=== PATIENT | female | born 1945 | race Caucasian/White ===

== ENCOUNTER 2016-11-12 05:46 | Emergency (ER) | payer MEDICARE, OTHER ==
[2016-11-12] MEDS ORDERED: PANT40TA3 PO (06:00)
[2016-11-12] MEDS ORDERED: ACET650S21 PO (06:00)
[2016-11-12] MEDS ORDERED: HYDROcodone/APAP 5/325 TABLET PO ONE (06:00)
[2016-11-12] MEDS ORDERED: THYROXINE PO (06:00)
[2016-11-12] MEDS ORDERED: METF10002 PO (06:00)
[2016-11-12] MEDS ORDERED: LISI5TAB7 PO (06:00)
[2016-11-12] MEDS ORDERED: HYDROcodone/APAP 5/325 TABLET ONE (06:22)
[2016-11-12 07:18] VITALS: BP 93/61
== END 2016-11-12 09:24 | disposition home or self-care (01) ==
LOC: ED 06:35
DX: G89.29 Other chronic pain (principal); M17.0 Bilateral primary osteoarthritis of knee; E11.9 Type 2 diabetes mellitus without complications

== ENCOUNTER 2016-11-13 22:18 | Inpatient (IN) | payer MEDICARE, OTHER ==
[~2016-11-13] VITALS: Ht 175.3 cm; Wt 153.6 kg
[~2016-11-13 22:18] MED LIST: ACET650S21 PO; LISI5TAB7 PO; METF10002 PO; PANT40TA3 PO; THYROXINE PO
[2016-11-13] MEDS ORDERED: SODIUM CHLORIDE 0.9% 1,000 ML IV ONE (22:35)
[2016-11-13] MEDS ORDERED: SODIUM CHLORIDE 0.9% 1,000ML IVBOLUS ONE (23:00)
[2016-11-13] MEDS ORDERED: SODIUM CHLORIDE FLUSH 10ML SYR IVF ONE (23:00)
[2016-11-13 23:15] LABS: ASPARTATE AMINO TRANSFERASE 52 U/L (15-37); BLOOD UREA NITROGEN 74 mg/dL (7-18)
[2016-11-13 23:39] LABS: DIFF TOTAL CELLS COUNTED 100 CELL DIFF
[2016-11-13 23:46] LABS: LARGE PLATELETS 1+; VERIFY COUNTS? YES
[2016-11-14] MEDS ORDERED: CEFTRIAXONE 1,000 MG in SODIUM CHLORIDE 0.9% 50 ML IVPB ONE
[2016-11-14] MEDS ORDERED: SODIUM CHLORIDE 0.9% 1,000 ML IV ONE (00:15)
[2016-11-14] MEDS ORDERED: SODIUM CHLORIDE FLUSH 10ML SYR IVF PRN (00:30)
[2016-11-14] MEDS ORDERED: MAALOX/HYOSCYAMINE/LIDOCAINE 45 ML BOTTLE ONE (00:40)
[2016-11-14] MEDS ORDERED: MAALOX/HYOSCYAMINE/LIDOCAINE 45 ML BOTTLE PO ONE (01:00)
[2016-11-14 02:31] VITALS: BP 101/87
[2016-11-14 02:49] VITALS: BP 101/87
[2016-11-14] MEDS ORDERED: POLYETHYLENE GLYCOL 17 GM PACKET PO PRN (04:00)
[2016-11-14] MEDS ORDERED: TRAZODONE 50MG TABLET PO PRN (04:00)
[2016-11-14] MEDS ORDERED: DOCUSATE 100 MG CAPSULE PO PRN (04:00)
[2016-11-14] MEDS ORDERED: PROCHLORPERAZINE 5 MG TABLET PO PRN (04:00)
[2016-11-14] MEDS ORDERED: LABETALOL 5MG/ML, 20ML IVPush PRN (04:00)
[2016-11-14] MEDS ORDERED: ACETAMINOPHEN 325 MG TABLET PO PRN (04:00)
[2016-11-14] MEDS ORDERED: BISACODYL 10 MG SUPP PR PRN (04:00)
[2016-11-14] MEDS: SODIUM CHLORIDE 0.9% 1,000 ML IV SCH ×2 (04:14→09:18)
[2016-11-14] MEDS: CEFTRIAXONE 2 GM in SODIUM CHLORIDE 0.9% 50 ML IV SCH (04:14)
[2016-11-14] MEDS: LEVOTHYROXINE 175 MCG TABLET PO SCH (05:47)
[2016-11-14] MEDS: NICOTINE 14MG/24 HR PATCH.TD24 TD SCH (05:50)
[2016-11-14] MEDS: HEPARIN 5,000 UNITS/ML, 1ML SQ SCH ×3 (05:52→22:00)
[2016-11-14 05:58] LABS: ASPARTATE AMINO TRANSFERASE 45 U/L (15-37); BLOOD UREA NITROGEN 78 mg/dL (7-18)
[2016-11-14 06:02] LABS: DIFF TOTAL CELLS COUNTED 100 CELL DIFF
[2016-11-14 06:05] LABS: VERIFY COUNTS? YES
[2016-11-14] MEDS: INSULIN ASPART 100 UNITS/ML, PEN SQ-INSULIN SCH ×4 (07:00→20:10)
[2016-11-14 07:51] VITALS: BP 78/54
[2016-11-14] MEDS ORDERED: LISINOPRIL 5 MG TABLET PO SCH (09:00)
[2016-11-14] MEDS: PANTOPROZOLE 40MG TABLET PO SCH (09:17)
[2016-11-14] MEDS ORDERED: SODIUM CHLORIDE 0.9% 1,000 ML IV SCH ×2 (11:30→13:00)
[2016-11-14 13:42] VITALS: BP 80/51
[2016-11-14 20:09] VITALS: BP 89/57
[2016-11-15 01:53] VITALS: BP 99/60
[2016-11-15] MEDS: CEFTRIAXONE 2 GM in SODIUM CHLORIDE 0.9% 50 ML IV SCH (03:58)
[2016-11-15 05:25] LABS: BLOOD UREA NITROGEN 89 mg/dL (7-18)
[2016-11-15] MEDS: LEVOTHYROXINE 175 MCG TABLET PO SCH (05:29)
[2016-11-15] MEDS: HEPARIN 5,000 UNITS/ML, 1ML SQ SCH ×3 (05:29→22:14)
[2016-11-15] MEDS: NICOTINE 14MG/24 HR PATCH.TD24 TD SCH (05:29)
[2016-11-15 05:49] LABS: DIFF TOTAL CELLS COUNTED 100 CELL DIFF
[2016-11-15 05:52] LABS: VERIFY COUNTS? YES
[2016-11-15 06:38] VITALS: BP 92/48
[2016-11-15] MEDS: INSULIN ASPART 100 UNITS/ML, PEN SQ-INSULIN SCH ×4 (07:00→20:15)
[2016-11-15] MEDS: PANTOPROZOLE 40MG TABLET PO SCH (09:55)
[2016-11-15] MEDS: SODIUM CHLORIDE 0.9% 1,000 ML IV SCH ×2 (11:16→17:37)
[2016-11-15 12:37] VITALS: BP 148/66
[2016-11-15] MEDS: MUPIROCIN OINT 2%, 22GM TP SCH ×3 (15:08→20:29)
[2016-11-15 19:18] VITALS: BP 108/66
[2016-11-16 01:08] VITALS: BP 101/62
[2016-11-16] MEDS: CEFTRIAXONE PMX 2GM/50ML 50 ML IVPB SCH (04:08)
[2016-11-16] MEDS: LEVOTHYROXINE 175 MCG TABLET PO SCH (05:17)
[2016-11-16] MEDS: HEPARIN 5,000 UNITS/ML, 1ML SQ SCH ×2 (05:18→17:02)
[2016-11-16] MEDS: NICOTINE 14MG/24 HR PATCH.TD24 TD SCH (05:18)
[2016-11-16 05:57] LABS: DIFF TOTAL CELLS COUNTED 100 CELL DIFF
[2016-11-16 05:58] LABS: BLOOD UREA NITROGEN 81 mg/dL (7-18)
[2016-11-16 06:00] LABS: VERIFY COUNTS? YES
[2016-11-16 06:03] LABS: ASPARTATE AMINO TRANSFERASE 26 U/L (15-37)
[2016-11-16 06:42] VITALS: BP 114/70
[2016-11-16] MEDS: INSULIN ASPART 100 UNITS/ML, PEN SQ-INSULIN SCH ×4 (09:11→20:49)
[2016-11-16] MEDS: MUPIROCIN OINT 2%, 22GM TP SCH ×2 (09:36→17:02)
[2016-11-16] MEDS: PANTOPROZOLE 40MG TABLET PO SCH (09:36)
[2016-11-16] MEDS: SODIUM CHLORIDE 0.9% 1,000 ML IV SCH ×2 (09:38→20:48)
[2016-11-16 12:05] VITALS: BP 134/74
[2016-11-16 19:16] VITALS: BP 118/69
[2016-11-17 01:22] VITALS: BP 114/72
[2016-11-17] MEDS: MUPIROCIN OINT 2%, 22GM TP SCH ×4 (01:27→21:00)
[2016-11-17] MEDS: HEPARIN 5,000 UNITS/ML, 1ML SQ SCH ×2 (01:27→08:37)
[2016-11-17] MEDS: CEFTRIAXONE PMX 2GM/50ML 50 ML IVPB SCH (04:17)
[2016-11-17 05:47] LABS: BLOOD UREA NITROGEN 50 mg/dL (7-18)
[2016-11-17 05:55] LABS: DIFF TOTAL CELLS COUNTED 100 CELL DIFF
[2016-11-17 05:59] LABS: VERIFY COUNTS? YES
[2016-11-17 06:01] LABS: POLYCHROMASIA 1+
[2016-11-17 06:05] LABS: LARGE PLATELETS 1+
[2016-11-17] MEDS: LEVOTHYROXINE 175 MCG TABLET PO SCH (06:16)
[2016-11-17] MEDS: NICOTINE 14MG/24 HR PATCH.TD24 TD SCH (06:16)
[2016-11-17 06:41] VITALS: BP 124/77
[2016-11-17] MEDS: INSULIN ASPART 100 UNITS/ML, PEN SQ-INSULIN SCH ×4 (07:00→22:52)
[2016-11-17] MEDS: PANTOPROZOLE 40MG TABLET PO SCH (08:37)
[2016-11-17] MEDS: SODIUM CHLORIDE 0.9% 1,000 ML IV SCH (09:56)
[2016-11-17] MEDS ORDERED: PROPOFOL 10 MG/ML, 20ML ONE (10:31)
[2016-11-17] MEDS ORDERED: ROCURONIUM 10 MG/ML ONE (10:31)
[2016-11-17] MEDS ORDERED: SUCCINYLCHOLINE 20 MG/ML, 10ML ONE (10:31)
[2016-11-17] MEDS ORDERED: OMNIPAQUE 350 MG/ML, 150 ML BOTTLE ONE (10:35)
[2016-11-17] MEDS ORDERED: PHARMACOKINETIC CONSULTATION MC ONE (12:00)
[2016-11-17] MEDS ORDERED: VANCOMYCIN PER PHARMACY MC PRN (12:00)
[2016-11-17] MEDS ORDERED: VANCOMYCIN 2,000 MG in SODIUM CHLORIDE 0.9% 500 ML IV SCH (12:00)
[2016-11-17] MEDS ORDERED: MIDAZOLAM 1 MG/ML, 2ML ONE (12:28)
[2016-11-17] MEDS ORDERED: FENTANYL PF 250 MCG/5ML ONE (12:28)
[2016-11-17] MEDS ORDERED: MIDAZOLAM 1 MG/ML, 5ML ONE (13:59)
[2016-11-17] MEDS ORDERED: ONDANSETRON 2MG/ML, 2ML IV PRN (14:30)
[2016-11-17] MEDS ORDERED: ENTER SLIDING SCALE INSULIN IF ORDERED XX PRN (14:30)
[2016-11-17] MEDS ORDERED: LORazepam 2 MG/ML, 1ML IV PRN (14:30)
[2016-11-17] MEDS ORDERED: LORazepam 1MG TABLET PO PRN (14:30)
[2016-11-17] MEDS ORDERED: FENTANYL PF 2,500 MCG in SODIUM CHLORIDE 0.9% 200 ML IV PRN (15:44)
[2016-11-17] MEDS ORDERED: DEXTROSE 50%, 50ML SYRINGE IVPush PRN (16:00)
[2016-11-17] MEDS ORDERED: PHARMACY MAY ADJ FOR RENAL FX MC SCH (16:00)
[2016-11-17] MEDS ORDERED: LIDOCAINE-MPF 1%, 2ML ENDO PRN (16:00)
[2016-11-17] MEDS ORDERED: LACTULOSE 20 GM/30 ML UDC NG PRN (16:00)
[2016-11-17] MEDS ORDERED: GLUCAGON 1 MG IM PRN (16:00)
[2016-11-17] MEDS ORDERED: MIDAZOLAM 1 MG/ML, 2ML IVPush PRN (16:00)
[2016-11-17 16:02] LABS: ABG COLLECTION SITE RIGHT RADIAL; COLLATERAL CIRCULATION TESTING NORMAL
[2016-11-17] MEDS: HYDROmorphone 1 MG/ML, 1ML IV PRN (16:17)
[2016-11-17] MEDS: PROPOFOL 100 ML IV PRN (16:19)
[2016-11-17] MEDS ORDERED: SODIUM CHLORIDE 0.9% 1,000ML IVBOLUS ONE ×2 (17:30→18:30)
[2016-11-17] MEDS ORDERED: VASOPRESSIN 100 UNIT in SODIUM CHLORIDE 0.9% 495 ML IV PRN (18:00)
[2016-11-17 18:31] LABS: ABG COLLECTION SITE RIGHT RADIAL; COLLATERAL CIRCULATION TESTING NORMAL
[2016-11-17] MEDS: NOREPINEPHRINE 4 MG in SODIUM CHLORIDE 0.9% 246 ML IV PRN ×2 (19:44→22:45)
[2016-11-17] MEDS: MEROPENEM 1 GM in SODIUM CHLORIDE 0.9% 100 ML IV SCH (20:08)
[2016-11-17] MEDS ORDERED: ENOXAPARIN 40 MG/0.4 ML ONE (20:57)
[2016-11-17] MEDS: morphine SULFATE 10 MG/ML, 1ML IV PRN (22:46)
[2016-11-17] MEDS ORDERED: FILTER 0.22 MICRON IV PRN (23:45)
[2016-11-18] MEDS ORDERED: SODIUM CHLORIDE 0.9% 1,000ML IVBOLUS ONE
[2016-11-18] MEDS ORDERED: AMIODARONE 900 MG in DEXTROSE 5% 482 ML IV PRN
[2016-11-18] MEDS ORDERED: PHENYLEPHRINE 20 MG in SODIUM CHLORIDE 0.9% 248 ML IV PRN
[2016-11-18] MEDS ORDERED: AMIODARONE 150 MG in DEXTROSE 5% 100 ML IV ONE
[2016-11-18] MEDS: PROPOFOL 100 ML IV PRN ×4 (00:11→19:16)
[2016-11-18] MEDS: NOREPINEPHRINE 8 MG in SODIUM CHLORIDE 0.9% 242 ML IV PRN ×3 (01:47→16:28)
[2016-11-18] MEDS: MEROPENEM 1 GM in SODIUM CHLORIDE 0.9% 100 ML IV SCH ×3 (03:41→19:49)
[2016-11-18] MEDS: INSULIN ASPART 100 UNITS/ML, PEN SQ-INSULIN SCH ×4 (04:19→20:44)
[2016-11-18 04:28] LABS: ASPARTATE AMINO TRANSFERASE 24 U/L (15-37); BLOOD UREA NITROGEN 47 mg/dL (7-18)
[2016-11-18 04:43] LABS: DIFF TOTAL CELLS COUNTED 100 CELL DIFF
[2016-11-18 04:49] LABS: ANISOCYTOSIS 1+
[2016-11-18 04:50] LABS: POLYCHROMASIA 1+
[2016-11-18 04:51] LABS: LARGE PLATELETS 1+
[2016-11-18 05:21] LABS: ABG COLLECTION SITE LEFT BRACHIAL
[2016-11-18] MEDS: LEVOTHYROXINE 175 MCG TABLET PO SCH (05:30)
[2016-11-18] MEDS: POTASSIUM CHLORIDE 20 MEQ in SODIUM CHLORIDE 0.9% 1,000 ML IV SCH ×2 (05:30→14:21)
[2016-11-18 05:56] LABS: VERIFY COUNTS? YES
[2016-11-18 06:00] VITALS: BP 120/59
[2016-11-18] MEDS: ENOXAPARIN 40 MG/0.4 ML SQ SCH (06:07)
[2016-11-18] MEDS: NICOTINE 14MG/24 HR PATCH.TD24 TD SCH (06:19)
[2016-11-18] MEDS: PANTOPROZOLE 40MG TABLET PO SCH (08:18)
[2016-11-18] MEDS: MUPIROCIN OINT 2%, 22GM TP SCH ×3 (09:00→21:00)
[2016-11-18] MEDS: PANTOPRAZOLE 40 MG IV IVPush SCH (11:27)
[2016-11-18] MEDS: HYDROmorphone 1 MG/ML, 1ML IV PRN ×2 (11:37→21:39)
[2016-11-18] MEDS: VANCOMYCIN 2,500 MG in SODIUM CHLORIDE 0.9% 500 ML IV SCH (12:52)
[2016-11-18] MEDS ORDERED: VANCOMYCIN 2,000 MG in SODIUM CHLORIDE 0.9% 500 ML IV SCH (13:00)
[2016-11-18] MEDS: ALBUTEROL/IPRATROPIUM 2.5MG/0.5MG, 3 ML INLINE PRN (19:01)
[2016-11-19] MEDS ORDERED: SODIUM CHLORIDE 0.9% 1,000 ML IV SCH
[2016-11-19] MEDS: PROPOFOL 100 ML IV PRN ×5 (00:28→21:33)
[2016-11-19] MEDS: HYDROmorphone 1 MG/ML, 1ML IV PRN ×4 (03:02→19:57)
[2016-11-19] MEDS: MEROPENEM 1 GM in SODIUM CHLORIDE 0.9% 100 ML IV SCH ×3 (04:00→19:57)
[2016-11-19] MEDS: INSULIN ASPART 100 UNITS/ML, PEN SQ-INSULIN SCH ×4 (04:19→20:50)
[2016-11-19 04:27] LABS: ABG COLLECTION SITE LEFT RADIAL; COLLATERAL CIRCULATION TESTING NORMAL
[2016-11-19] MEDS: LEVOTHYROXINE 175 MCG TABLET PO SCH (05:27)
[2016-11-19] MEDS: ENOXAPARIN 40 MG/0.4 ML SQ SCH (05:28)
[2016-11-19 06:00] VITALS: BP 112/54
[2016-11-19] MEDS: NICOTINE 14MG/24 HR PATCH.TD24 TD SCH (06:38)
[2016-11-19 07:31] LABS: ASPARTATE AMINO TRANSFERASE 22 U/L (15-37); BLOOD UREA NITROGEN 42 mg/dL (7-18)
[2016-11-19 07:33] LABS: DIFF TOTAL CELLS COUNTED 100 CELL DIFF
[2016-11-19 07:35] LABS: ANISOCYTOSIS 1+; VERIFY COUNTS? YES
[2016-11-19 07:36] LABS: LARGE PLATELETS 1+; POLYCHROMASIA 1+
[2016-11-19] MEDS: PANTOPROZOLE 40MG TABLET PO SCH (08:13)
[2016-11-19] MEDS: PANTOPRAZOLE 40 MG IV IVPush SCH (08:19)
[2016-11-19] MEDS: SODIUM CHLORIDE 0.9% 1,000 ML IV SCH ×3 (08:20→23:40)
[2016-11-19] MEDS: MUPIROCIN OINT 2%, 22GM TP SCH ×3 (08:22→21:00)
[2016-11-19] MEDS: VANCOMYCIN 2,500 MG in SODIUM CHLORIDE 0.9% 500 ML IV SCH (12:42)
[2016-11-19] MEDS: NOREPINEPHRINE 8 MG in SODIUM CHLORIDE 0.9% 242 ML IV PRN (16:08)
[2016-11-20] MEDS: HYDROmorphone 1 MG/ML, 1ML IV PRN ×3 (01:49→16:20)
[2016-11-20] MEDS: PROPOFOL 100 ML IV PRN ×5 (02:01→21:26)
[2016-11-20] MEDS: MEROPENEM 1 GM in SODIUM CHLORIDE 0.9% 100 ML IV SCH ×3 (03:32→21:02)
[2016-11-20] MEDS: INSULIN ASPART 100 UNITS/ML, PEN SQ-INSULIN SCH ×4 (04:00→21:00)
[2016-11-20 04:20] LABS: ABG COLLECTION SITE RIGHT RADIAL; COLLATERAL CIRCULATION TESTING NORMAL
[2016-11-20 04:41] LABS: ASPARTATE AMINO TRANSFERASE 18 U/L (15-37); BLOOD UREA NITROGEN 31 mg/dL (7-18); DIFF TOTAL CELLS COUNTED 100 CELL DIFF
[2016-11-20 04:45] LABS: ANISOCYTOSIS 1+; POLYCHROMASIA 1+
[2016-11-20 04:46] LABS: VERIFY COUNTS? YES
[2016-11-20] MEDS: LEVOTHYROXINE 175 MCG TABLET PO SCH (04:53)
[2016-11-20] MEDS: NOREPINEPHRINE 8 MG in SODIUM CHLORIDE 0.9% 242 ML IV PRN (05:52)
[2016-11-20 06:00] VITALS: BP 116/75
[2016-11-20] MEDS: NICOTINE 14MG/24 HR PATCH.TD24 TD SCH (06:00)
[2016-11-20] MEDS: ENOXAPARIN 40 MG/0.4 ML SQ SCH (06:00)
[2016-11-20] MEDS ORDERED: FENTANYL PF 250 MCG/5ML ONE (06:26)
[2016-11-20] MEDS ORDERED: PROPOFOL 10 MG/ML, 50ML ONE (06:50)
[2016-11-20] MEDS: PANTOPRAZOLE 40 MG IV IVPush SCH (11:33)
[2016-11-20] MEDS: ALBUMIN HUMAN 25% 100 ML IV SCH ×3 (11:33→23:56)
[2016-11-20] MEDS: SODIUM CHLORIDE 0.45% 1,000 ML IV SCH (11:52)
[2016-11-20] MEDS: VANCOMYCIN 2,500 MG in SODIUM CHLORIDE 0.9% 500 ML IV SCH (13:46)
[2016-11-20] MEDS: ALBUTEROL/IPRATROPIUM 2.5MG/0.5MG, 3 ML INLINE PRN ×2 (19:04→21:35)
[2016-11-21] MEDS: SODIUM CHLORIDE 0.45% 1,000 ML IV SCH ×2 (00:49→15:00)
[2016-11-21] MEDS: INSULIN ASPART 100 UNITS/ML, PEN SQ-INSULIN SCH ×4 (03:00→20:49)
[2016-11-21] MEDS: PROPOFOL 100 ML IV PRN ×4 (03:08→19:42)
[2016-11-21] MEDS: MEROPENEM 1 GM in SODIUM CHLORIDE 0.9% 100 ML IV SCH ×3 (03:30→19:42)
[2016-11-21 04:22] LABS: ABG COLLECTION SITE RIGHT RADIAL; COLLATERAL CIRCULATION TESTING NORMAL
[2016-11-21] MEDS: LEVOTHYROXINE 175 MCG TABLET PO SCH (05:47)
[2016-11-21] MEDS: ENOXAPARIN 40 MG/0.4 ML SQ SCH (05:48)
[2016-11-21] MEDS: NICOTINE 14MG/24 HR PATCH.TD24 TD SCH (05:48)
[2016-11-21] MEDS: ALBUTEROL/IPRATROPIUM 2.5MG/0.5MG, 3 ML INLINE PRN (07:15)
[2016-11-21] MEDS: ALBUMIN HUMAN 25% 100 ML IV SCH ×3 (07:32→23:50)
[2016-11-21] MEDS ORDERED: MORPHINE SULFATE 4 MG/ML, 1ML ONE (09:14)
[2016-11-21] MEDS: morphine SULFATE 10 MG/ML, 1ML IV PRN ×3 (09:18→22:33)
[2016-11-21] MEDS: PANTOPRAZOLE 40 MG IV IVPush SCH (09:43)
[2016-11-21] MEDS: VANCOMYCIN 2,500 MG in SODIUM CHLORIDE 0.9% 500 ML IV SCH (13:23)
[2016-11-21] MEDS ORDERED: MUPIROCIN OINT 2%, 22GM TP PRN (14:00)
[2016-11-22] VITALS (9 sets, daily range): BP systolic 101–141; BP diastolic 51–63
[2016-11-22] MEDS: morphine SULFATE 10 MG/ML, 1ML IV PRN ×2 (01:08→20:17)
[2016-11-22] MEDS: INSULIN ASPART 100 UNITS/ML, PEN SQ-INSULIN SCH ×4 (03:00→20:40)
[2016-11-22] MEDS: SODIUM CHLORIDE 0.45% 1,000 ML IV SCH ×2 (03:45→17:42)
[2016-11-22] MEDS: MEROPENEM 1 GM in SODIUM CHLORIDE 0.9% 100 ML IV SCH ×3 (03:45→19:43)
[2016-11-22 04:30] LABS: ABG COLLECTION SITE RIGHT BRACHIAL
[2016-11-22 04:32] LABS: BLOOD UREA NITROGEN 24 mg/dL (7-18)
[2016-11-22] MEDS: PROPOFOL 100 ML IV PRN ×2 (04:39→18:05)
[2016-11-22] MEDS: NICOTINE 14MG/24 HR PATCH.TD24 TD SCH (05:12)
[2016-11-22] MEDS: HYDROmorphone 1 MG/ML, 1ML IV PRN (05:12)
[2016-11-22] MEDS: LEVOTHYROXINE 175 MCG TABLET PO SCH (05:12)
[2016-11-22] MEDS: ENOXAPARIN 40 MG/0.4 ML SQ SCH (05:13)
[2016-11-22] MEDS: ALBUMIN HUMAN 25% 100 ML IV SCH ×3 (08:45→23:56)
[2016-11-22] MEDS: PANTOPRAZOLE 40 MG IV IVPush SCH (09:21)
[2016-11-22] MEDS: METRONIDAZOLE PMX 500MG/100ML 100 ML IV SCH ×2 (14:27→20:17)
[2016-11-22] MEDS ORDERED: LABETALOL 5MG/ML, 20ML IVPush PRN ×2 (19:25→20:30)
[2016-11-22] MEDS ORDERED: BISACODYL 10 MG SUPP PR PRN (20:30)
[2016-11-22] MEDS ORDERED: GLUCAGON 1 MG IM PRN (20:30)
[2016-11-22] MEDS ORDERED: DEXTROSE 50%, 50ML SYRINGE IVPush PRN (20:30)
[2016-11-22] MEDS ORDERED: FILTER 0.22 MICRON IV PRN (20:30)
[2016-11-22] MEDS ORDERED: DOCUSATE 100 MG CAPSULE PO PRN (20:30)
[2016-11-22] MEDS ORDERED: POLYETHYLENE GLYCOL 17 GM PACKET PO PRN (20:30)
[2016-11-22] MEDS: ALBUTEROL/IPRATROPIUM 2.5MG/0.5MG, 3 ML INLINE PRN ×2 (20:40→23:54)
[2016-11-22] MEDS: POTASSIUM CHLORIDE 20 MEQ PACKET PO SCH (22:21)
[2016-11-23] MEDS: PROPOFOL 100 ML IV PRN ×4 (00:33→23:12)
[2016-11-23] MEDS: morphine SULFATE 10 MG/ML, 1ML IV PRN ×4 (00:33→22:38)
[2016-11-23] MEDS: INSULIN ASPART 100 UNITS/ML, PEN SQ-INSULIN SCH ×4 (03:00→20:41)
[2016-11-23] MEDS: MEROPENEM 1 GM in SODIUM CHLORIDE 0.9% 100 ML IV SCH ×3 (03:40→19:34)
[2016-11-23 04:05] LABS: ASPARTATE AMINO TRANSFERASE 15 U/L (15-37); BLOOD UREA NITROGEN 26 mg/dL (7-18)
[2016-11-23 04:16] LABS: ABG COLLECTION SITE LEFT RADIAL
[2016-11-23 04:17] LABS: COLLATERAL CIRCULATION TESTING NORMAL
[2016-11-23] MEDS: METRONIDAZOLE PMX 500MG/100ML 100 ML IV SCH ×3 (05:05→20:42)
[2016-11-23] MEDS: ENOXAPARIN 40 MG/0.4 ML SQ SCH (05:06)
[2016-11-23] MEDS: NICOTINE 14MG/24 HR PATCH.TD24 TD SCH (05:06)
[2016-11-23] MEDS: LEVOTHYROXINE 175 MCG TABLET PO SCH (05:06)
[2016-11-23] MEDS: ALBUMIN HUMAN 25% 100 ML IV SCH ×3 (08:17→23:12)
[2016-11-23] MEDS: POTASSIUM CHLORIDE 20 MEQ PACKET PO SCH ×2 (09:08→20:42)
[2016-11-23] MEDS: FUROSEMIDE 20 MG/2 ML IV SCH (09:09)
[2016-11-23] MEDS: PANTOPRAZOLE 40 MG IV IVPush SCH (09:09)
[2016-11-23] MEDS: SODIUM CHLORIDE 0.45% 1,000 ML IV SCH ×2 (12:52→23:12)
[2016-11-24] MEDS: INSULIN ASPART 100 UNITS/ML, PEN SQ-INSULIN SCH ×4 (03:00→21:00)
[2016-11-24] MEDS: MEROPENEM 1 GM in SODIUM CHLORIDE 0.9% 100 ML IV SCH ×3 (03:45→19:52)
[2016-11-24] MEDS: METRONIDAZOLE PMX 500MG/100ML 100 ML IV SCH ×3 (05:00→21:20)
[2016-11-24 05:03] LABS: ABG COLLECTION SITE RIGHT RADIAL; COLLATERAL CIRCULATION TESTING NORMAL
[2016-11-24 05:25] LABS: BLOOD UREA NITROGEN 31 mg/dL (7-18)
[2016-11-24 05:27] LABS: ASPARTATE AMINO TRANSFERASE 18 U/L (15-37)
[2016-11-24] MEDS: LEVOTHYROXINE 175 MCG TABLET PO SCH (05:27)
[2016-11-24] MEDS: ENOXAPARIN 40 MG/0.4 ML SQ SCH (05:28)
[2016-11-24] MEDS: NICOTINE 14MG/24 HR PATCH.TD24 TD SCH (05:28)
[2016-11-24] MEDS: PROPOFOL 100 ML IV PRN ×3 (05:29→19:53)
[2016-11-24] MEDS: PANTOPRAZOLE 40 MG IV IVPush SCH (08:31)
[2016-11-24] MEDS: POTASSIUM CHLORIDE 20 MEQ PACKET PO SCH ×2 (08:31→21:19)
[2016-11-24] MEDS: FUROSEMIDE 20 MG/2 ML IV SCH (08:31)
[2016-11-24] MEDS: ALBUMIN HUMAN 25% 100 ML IV SCH ×2 (08:45→15:54)
[2016-11-24] MEDS ORDERED: SODIUM CHLORIDE 0.45% 1,000 ML IV SCH (10:30)
[2016-11-25] MEDS: ALBUMIN HUMAN 25% 100 ML IV SCH ×3 (00:06→15:42)
[2016-11-25] MEDS: PROPOFOL 100 ML IV PRN ×5 (00:06→18:04)
[2016-11-25] MEDS: METRONIDAZOLE PMX 500MG/100ML 100 ML IV SCH ×3 (04:15→20:55)
[2016-11-25] MEDS: MEROPENEM 1 GM in SODIUM CHLORIDE 0.9% 100 ML IV SCH ×3 (04:17→19:50)
[2016-11-25] MEDS: INSULIN ASPART 100 UNITS/ML, PEN SQ-INSULIN SCH ×4 (04:45→20:54)
[2016-11-25 05:41] LABS: ABG COLLECTION SITE RIGHT RADIAL; COLLATERAL CIRCULATION TESTING NORMAL
[2016-11-25 06:05] LABS: ASPARTATE AMINO TRANSFERASE 10 U/L (15-37); BLOOD UREA NITROGEN 33 mg/dL (7-18)
[2016-11-25] MEDS: NICOTINE 14MG/24 HR PATCH.TD24 TD SCH (06:18)
[2016-11-25] MEDS: LEVOTHYROXINE 175 MCG TABLET PO SCH (06:18)
[2016-11-25] MEDS: ENOXAPARIN 40 MG/0.4 ML SQ SCH (06:18)
[2016-11-25] MEDS: PANTOPRAZOLE 40 MG IV IVPush SCH (07:34)
[2016-11-25] MEDS: POTASSIUM CHLORIDE 20 MEQ PACKET PO SCH ×2 (07:35→20:55)
[2016-11-25] MEDS: FENTANYL PF 100 MCG/2ML IVPush PRN (09:22)
[2016-11-25] MEDS: morphine SULFATE 10 MG/ML, 1ML IV PRN (09:25)
[2016-11-25] MEDS: FUROSEMIDE 40 MG/4 ML IV SCH ×2 (10:33→20:55)
[2016-11-26] MEDS: ALBUMIN HUMAN 25% 100 ML IV SCH ×3 (00:19→16:17)
[2016-11-26] MEDS: PROPOFOL 100 ML IV PRN (02:33)
[2016-11-26] MEDS: INSULIN ASPART 100 UNITS/ML, PEN SQ-INSULIN SCH ×4 (03:00→20:28)
[2016-11-26] MEDS: MEROPENEM 1 GM in SODIUM CHLORIDE 0.9% 100 ML IV SCH ×3 (03:16→20:22)
[2016-11-26 04:13] LABS: ASPARTATE AMINO TRANSFERASE 13 U/L (15-37); BLOOD UREA NITROGEN 42 mg/dL (7-18)
[2016-11-26 04:40] LABS: ABG COLLECTION SITE RIGHT RADIAL; COLLATERAL CIRCULATION TESTING NORMAL
[2016-11-26] MEDS: METRONIDAZOLE PMX 500MG/100ML 100 ML IV SCH ×3 (05:12→21:13)
[2016-11-26] MEDS: NICOTINE 14MG/24 HR PATCH.TD24 TD SCH (05:12)
[2016-11-26] MEDS: ENOXAPARIN 40 MG/0.4 ML SQ SCH (05:12)
[2016-11-26] MEDS: LEVOTHYROXINE 175 MCG TABLET PO SCH (05:13)
[2016-11-26] MEDS: FUROSEMIDE 40 MG/4 ML IV SCH ×2 (08:43→21:13)
[2016-11-26] MEDS: POTASSIUM CHLORIDE 20 MEQ PACKET PO SCH ×2 (08:43→21:00)
[2016-11-26] MEDS: PANTOPRAZOLE 40 MG IV IVPush SCH (08:43)
[2016-11-26] MEDS: FENTANYL PF 100 MCG/2ML IVPush PRN ×2 (16:23→20:22)
[2016-11-26] MEDS ORDERED: POTASSIUM CHLORIDE PMX 100 ML IV ONE (22:00)
[2016-11-27] MEDS: ALBUMIN HUMAN 25% 100 ML IV SCH ×3 (00:42→15:36)
[2016-11-27] MEDS: INSULIN ASPART 100 UNITS/ML, PEN SQ-INSULIN SCH ×4 (03:00→21:00)
[2016-11-27] MEDS: MEROPENEM 1 GM in SODIUM CHLORIDE 0.9% 100 ML IV SCH ×3 (03:35→19:36)
[2016-11-27 03:56] LABS: ASPARTATE AMINO TRANSFERASE 14 U/L (15-37); BLOOD UREA NITROGEN 32 mg/dL (7-18)
[2016-11-27 04:31] LABS: ABG COLLECTION SITE RIGHT RADIAL; COLLATERAL CIRCULATION TESTING NORMAL
[2016-11-27] MEDS: METRONIDAZOLE PMX 500MG/100ML 100 ML IV SCH ×3 (04:45→21:05)
[2016-11-27] MEDS: LEVOTHYROXINE 175 MCG TABLET PO SCH (06:00)
[2016-11-27] MEDS ORDERED: LEVOTHYROXINE 100 MCG INJ IVPush SCH (06:30)
[2016-11-27] MEDS: ENOXAPARIN 40 MG/0.4 ML SQ SCH (06:40)
[2016-11-27] MEDS: NICOTINE 14MG/24 HR PATCH.TD24 TD SCH (06:40)
[2016-11-27] MEDS: FENTANYL PF 100 MCG/2ML IVPush PRN (09:12)
[2016-11-27] MEDS: morphine SULFATE 10 MG/ML, 1ML IV PRN (09:12)
[2016-11-27] MEDS: FUROSEMIDE 40 MG/4 ML IV SCH ×2 (09:12→21:05)
[2016-11-27] MEDS: PANTOPRAZOLE 40 MG IV IVPush SCH (09:12)
[2016-11-27] MEDS: POTASSIUM CHLORIDE 20 MEQ PACKET PO SCH ×2 (11:12→21:51)
[2016-11-27] MEDS: ENOXAPARIN 30 MG/0.3 ML SQ SCH (17:39)
[2016-11-28] MEDS: ALBUMIN HUMAN 25% 100 ML IV SCH ×2 (00:22→08:18)
[2016-11-28] MEDS: INSULIN ASPART 100 UNITS/ML, PEN SQ-INSULIN SCH ×2 (03:00→08:42)
[2016-11-28] MEDS: MEROPENEM 1 GM in SODIUM CHLORIDE 0.9% 100 ML IV SCH ×2 (03:54→12:05)
[2016-11-28 04:20] LABS: ABG COLLECTION SITE RIGHT RADIAL; COLLATERAL CIRCULATION TESTING NORMAL
[2016-11-28 04:28] LABS: BLOOD UREA NITROGEN 24 mg/dL (7-18)
[2016-11-28 04:31] LABS: ASPARTATE AMINO TRANSFERASE 12 U/L (15-37)
[2016-11-28] MEDS: METRONIDAZOLE PMX 500MG/100ML 100 ML IV SCH (04:57)
[2016-11-28] MEDS: NICOTINE 14MG/24 HR PATCH.TD24 TD SCH (05:25)
[2016-11-28] MEDS: LEVOTHYROXINE 175 MCG TABLET PO SCH (05:25)
[2016-11-28] MEDS: ENOXAPARIN 30 MG/0.3 ML SQ SCH (06:00)
[2016-11-28] MEDS ORDERED: TRAM50TA2 PO (07:17)
[2016-11-28] MEDS ORDERED: FENT50VI IVPush (07:17)
[2016-11-28] MEDS ORDERED: ALPR-475 PO (07:17)
[2016-11-28] MEDS ORDERED: TRAZ50TA18 PO (07:17)
[2016-11-28] MEDS ORDERED: POTA20PA8 PO (07:17)
[2016-11-28] MEDS ORDERED: HYDR1AMP IV (07:17)
[2016-11-28] MEDS ORDERED: FURO10VI37 IV (07:17)
[2016-11-28] MEDS ORDERED: INSU100I18 SQ-INSULIN (07:17)
[2016-11-28] MEDS ORDERED: ACET325T14 PO (07:17)
[2016-11-28] MEDS ORDERED: LEVO175T2 PO (07:17)
[2016-11-28] MEDS ORDERED: ENOX30SY4 SQ (07:17)
[2016-11-28] MEDS: PANTOPRAZOLE 40 MG IV IVPush SCH (08:18)
[2016-11-28] MEDS: FUROSEMIDE 40 MG/4 ML IV SCH (08:18)
[2016-11-28] MEDS: POTASSIUM CHLORIDE 20 MEQ PACKET PO SCH (08:19)
== END 2016-11-28 12:29 | DRG 853 ==
LOC: ED 23:59 → EDIP 11-14 00:56 → 3NE 11-14 01:12 → CCU 11-17 13:54
PROVIDERS: ADMIT Internal Medicine
PROC: 5A1955Z Respiratory Ventilation, Greater than 96 Consecutive Hours (ICD-10-PCS; 2016-11-17)
PROC: 0BH17EZ Insertion of Endotracheal Airway into Trachea, Via Natural or Artificial Opening (ICD-10-PCS; 2016-11-17)
PROC: 0JBL0ZZ Excision of Right Upper Leg Subcutaneous Tissue and Fascia, Open Approach (ICD-10-PCS; 2016-11-17)
PROC: 0JBB0ZZ Excision of Perineum Subcutaneous Tissue and Fascia, Open Approach (ICD-10-PCS; principal; 2016-11-17 12:30)
PROC: 0JBB0ZZ Excision of Perineum Subcutaneous Tissue and Fascia, Open Approach (ICD-10-PCS; 2016-11-20)
PROC: 0JBL0ZZ Excision of Right Upper Leg Subcutaneous Tissue and Fascia, Open Approach (ICD-10-PCS; 2016-11-20)
PROC: 30233N1 Transfusion of Nonautologous Red Blood Cells into Peripheral Vein, Percutaneous Approach (ICD-10-PCS; 2016-11-22)
DX: A41.51 Sepsis due to Escherichia coli [E. coli] (principal); E43 Unspecified severe protein-calorie malnutrition; G93.40 Encephalopathy, unspecified; J96.90 Respiratory failure, unspecified, unspecified whether with hypoxia or hypercapnia; M72.6 Necrotizing fasciitis; N17.0 Acute kidney failure with tubular necrosis; E87.1 Hypo-osmolality and hyponatremia; M62.82 Rhabdomyolysis; E87.0 Hyperosmolality and hypernatremia; J98.11 Atelectasis; L03.115 Cellulitis of right lower limb; N10 Acute pyelonephritis; N30.00 Acute cystitis without hematuria; Z68.43 Body mass index [BMI] 50.0-59.9, adult; Z99.11 Dependence on respirator [ventilator] status; E03.9 Hypothyroidism, unspecified; E11.9 Type 2 diabetes mellitus without complications; E66.01 Morbid (severe) obesity due to excess calories; G89.29 Other chronic pain; E86.0 Dehydration; E87.70 Fluid overload, unspecified; F17.210 Nicotine dependence, cigarettes, uncomplicated; I10 Essential (primary) hypertension; K21.9 Gastro-esophageal reflux disease without esophagitis; M17.0 Bilateral primary osteoarthritis of knee; R65.20 Severe sepsis without septic shock; W19.XXXA Unspecified fall, initial encounter; Y92.009 Unspecified place in unspecified non-institutional (private) residence as the place of occurrence of the external cause; Y93.89 Activity, other specified; Z80.0 Family history of malignant neoplasm of digestive organs; Z82.3 Family history of stroke; Z90.710 Acquired absence of both cervix and uterus
CPT/HCPCS: 36415; 36600; 51702; 71010; 74177; 76770; 80048; 80053; 80202; 81001; 82306; 82436; 82550; 82570; 82803; 82962; 83036; 83605; 83690; 83735; 83970; 84100; 84133; 84300; 84439; 84443; 84478; 84550; 85025; 85610; 85730; 86850; 86900; 86923; 87015; 87040; 87070; 87075; 87076; 87077; 87081; 87086; 87102; 87116; 87186; 87205; 87206; 93005; 94002; 94003; 94640; 96365; J0696; J1170; J1644; J1650; J1815; J1940; J2185; J2250; J2704; J3010; J3370; J3480; J7620; P9047; Q9967; C9113; J0330; J2270; J7030; J7040; J7050; P9016